=== PATIENT | male | born 1945 | race Asian ===

== ENCOUNTER 2016-12-09 17:29 | Inpatient (IN) | payer OTHER, MEDICAID ==
[2016-09-03 13:54] VITALS: Ht 162.6 cm; Wt 101.6 kg
[~2016-12-09] VITALS: Ht 162.6 cm; Wt 101.6 kg
[2016-12-09] VITALS (8 sets, daily range): BP systolic 112–137; BP diastolic 62–73; PULSE 51–74; RESP 16–26; TEMP 97.9–98.2; O2SAT 78–98
[~2016-12-09 17:29] MED LIST: ALBU8.5H8 INH; ASA81 PO; ASPI-1063; ATEN100T44 PO; BECL8.7A6 INH; COR6.25 PO; DOXA2TAB PO; FEBU80TA PO; FURO-150 PO; GLYB5TAB7 PO; LOSA100T11 PO; LOSA25TA3; LOSA25TA3 PO; MONT10TA22 PO; NOR10 PO; SIMV5TAB53 PO; SSREG SUBCUT; [UNRECOGNIZED DRUG - CODE]; [UNRECOGNIZED DRUG - CODE]
--- NOTE | 2016-12-09 17:40 | NUR ---
Pt placed to ER bed 03, on radiation monitor. Pt report given to Dr. Cavazos and DANAE Neal. RT called to bedside.
--- NOTE | 2016-12-09 17:58 | NUR ---
Pt placed in room 3, distended abd, SOB noted w/ acessory muscle use. Placed on balance weigher w/ SR noted, rates discomfort 6/10.
[2016-12-09] MEDS ORDERED: FUROSEMIDE 40 MG/4 ML VIAL IVP ONE ×2 (18:00→21:30)
[2016-12-09] MEDS ORDERED: methylPREDNISolone SOD SUCC/PF 62.5 MG/ML VIAL IVP ONE (18:00)
[2016-12-09] MEDS ORDERED: IPRATROPIUM/ALBUTEROL SULFATE 3 ML AMPUL.NEB INH ONE (18:00)
[2016-12-09 18:01] LABS: ABG TOTAL HEMOGLOBIN 15.2 G/dL (12.0-18.0); BLOOD GAS BASE EXCESS 6.3 mmol/L (-3.0-3.0); BLOOD GAS COHb% 1.8 % (0.5-1.5); BLOOD GAS HHB 25.8 % (0.0-6.0)
[2016-12-09 18:03] LABS: BASOPHILS % (AUTO) 0.1 % (0.0-2.0); EOSINOPHILS % (AUTO) 0.4 % (0.0-4.0); HEMATOCRIT 43.4 % (36-54); HEMOGLOBIN 13.9 g/dL (14.0-18.0); LYMPHOCYTES # (AUTO) 0.8 K/uL (1.0-5.5); LYMPHOCYTES % (AUTO) 7.5 % (20.5-51.5); MEAN CORPUSCULAR HEMOGLOBIN 26 pg (27-31); MEAN CORPUSCULAR HGB CONC 32 % (32-36); MEAN CORPUSCULAR VOLUME 82 fL (79.0-98.0); MONOCYTES # (AUTO) 0.3 K/uL (0.0-1.0); MONOCYTES % (AUTO) 2.8 % (1.7-9.3); NEUTROPHILS # (AUTO) 9.5 K/uL (1.8-7.7); NEUTROPHILS % (AUTO) 89.2 % (40.0-70.0); PLATELET COUNT (AUTO) 185 K/uL (130-430); RED BLOOD CELL COUNT(AUTO) 5.31 MIL/uL (4.2-6.2); RED CELL DISTRIBUTION WIDTH 13.5 % (9.0-15.0); WHITE BLOOD COUNT (AUTO) 10.6 K/uL (4.8-10.8)
--- NOTE | 2016-12-09 18:10 | NUR ---
X-ray in progress at bedside.
[2016-12-09 18:22] LABS: ANION GAP 6 (5-15); CHLORIDE 102 mmol/L (98-107); CREATININE 2.19 mg/dL (0.55-1.30); GLUCOSE 116 mg/dL (70-99); POTASSIUM 3.4 mmol/L (3.5-5.1); SODIUM SERUM 141 mmol/L (136-145); UREA NITROGEN, BLOOD 49 mg/dL (8-21)
[2016-12-09 18:26] LABS: INR 1.1 (0.80-1.20); PROTHROMBIN TIME 11.5 SECS (9.5-12.5)
[2016-12-09 18:41] LABS: ALANINE AMINOTRANSFERASE 27 U/L (12-78); ASPARTATE AMINOTRANSFERASE 24 U/L (10-37); TOTAL BILIRUBIN 1.7 mg/dL (0.0-1.0)
[2016-12-09 18:42] LABS: ALBUMIN 2.7 g/dL (3.4-4.8); TOTAL PROTEIN, SERUM 8.4 g/dL (6.4-8.3)
[2016-12-09] MEDS ORDERED: ETOMIDATE 20 MG/ 10 ML VIAL (AMIDATE) IVP ONE ×2 (19:29→20:00)
--- NOTE | 2016-12-09 19:32 | NUR ---
PT WAS INTUBATED BY DR JOSHUA WITH ET TUBE SIZE 8.0, AND LEVEL 23.
--- NOTE | 2016-12-09 19:33 | NUR ---
PT WAS PUT IN A MECHANICAL VENT WITH SETTINGS TIDAL VOLUME 600, RR 16, FIO2 100%.
--- NOTE | 2016-12-09 19:40 | NUR ---
# 16 FR Newton catheter with use of sterile technique. Immediate return of 200 cc DARK YELLOW urine noted. Bedside drainage bag placed below level of bladder. Urine sample collected and sent to lab. Pt tolerated procedure WELL.
--- NOTE | 2016-12-09 19:51 | NUR ---
DR HALL CALLED AND TALKED TO DR JOSHUA AND RECIEVED ORDERS.
[2016-12-09] MEDS ORDERED: ETOMIDATE 20 MG/ 10 ML VIAL (AMIDATE) ONE (19:57)
[2016-12-09] MEDS ORDERED: ROCURONIUM BROMIDE 10 MG/ML (ZEMURON) IV ONE (20:00)
[2016-12-09] MEDS ORDERED: IPRATROPIUM/ALBUTEROL SULFATE 3 ML AMPUL.NEB INH PRN (20:30)
--- NOTE | 2016-12-09 20:40 | NUR ---
Spoke with MD Salas informed of ABG, New vent settings to 50% FiO2. and addition orders are placed.
--- NOTE | 2016-12-09 21:00 | NUR ---
Patient will be admitted to care of DR LING . Admitted to ICU unit. Will go to room 4. Belongings list completed. Summary report printed. Report given to HILARIO FARRAR.
--- NOTE | 2016-12-09 21:10 | NUR ---
Admission Jennifer vicente, 71 years old, male, care of dr. edouard. Pt intubated in E.R. ETT lipline 23cm, size 8. AC 16, Fio2 50%, tidal volume 600. pt tolerating well, spo2 at 99% at the time. IV site on the right wrist 20g and left AC 20g noted, saline locked. safety precautions in place. Bed in the lowest positioned, locked. HOB semi Lund 30 degrees for aspiration precaution. daughter Dina at bedside. Plan of care discussed. verbalized understandings. call light within reach. will continue to monitor Flu vaccine: per daughter Dina flu vaccine was received in this hospital on August of last year during his admit.
[2016-12-09] MEDS ORDERED: DEXTROSE 50% JECT 50 ML DISP.SYRIN IVP PRN (21:15)
[2016-12-09 22:05] LABS: BLOOD GAS BASE EXCESS 5.2 mmol/L (-3.0-3.0); BLOOD GAS PH 7.462 (7.350-7.450)
[2016-12-09 22:06] LABS: ABG TOTAL HEMOGLOBIN 14.8 G/dL (12.0-18.0); BLOOD GAS COHb% 1.2 % (0.5-1.5); BLOOD GAS HHB 1.2 % (0.0-6.0); BLOOD O2Hb% 97.2 % (94.0-97.0)
[2016-12-09] MEDS: methylPREDNISolone SOD SUCC/PF 62.5 MG/ML VIAL IVP SCH (22:22)
[2016-12-09] MEDS ORDERED: cefTRIAXone 1 GM IVPB PREMIX 50 ML IV ONE (22:53)
[2016-12-09] MEDS ORDERED: AZITHROMYCIN 500 MG/VIAL (ZITHROMAX) IV ONE (22:54)
[2016-12-09] MEDS: IPRATROPIUM/ALBUTEROL SULFATE 3 ML AMPUL.NEB INH SCH (23:38)
[2016-12-10] VITALS (35 sets, daily range): BP systolic 99–135; BP diastolic 45–86; PULSE 59–77; RESP 16–18; TEMP 97.8–99; O2SAT 91–98
--- NOTE | 2016-12-10 | NUR ---
called dr. Salas regarding pt agited and distress. facial grimacing noted. New orders given for bilateral soft wrist restrains, ativan 2mg IVP q2h PRN, insert oral g-tube and Morphine 2mg IVP q4h for pain. verified order. carried out.
[2016-12-10] MEDS: cefTRIAXone 1 GM IVPB PREMIX 50 ML IV SCH ×2 (00:04→21:52)
[2016-12-10] MEDS: AZITHROMYCIN 500 MG in NS 250 ML IV SCH ×2 (00:05→21:52)
[2016-12-10] MEDS: LORazepam 2 MG/ML VIAL IVP PRN ×5 (00:23→19:43)
--- NOTE | 2016-12-10 04:00 | NUR ---
Pt eye open. appeared to be distress, facial grimacing noted. when asked pt if needed anti anxiety medication. pt nodded. administered. pt resting. comfortable. Will continue to monitor
[2016-12-10] MEDS: IPRATROPIUM/ALBUTEROL SULFATE 3 ML AMPUL.NEB INH SCH ×6 (04:05→23:32)
--- NOTE | 2016-12-10 05:30 | NUR ---
MD rounds Pt was seen by Dr. miller.
[2016-12-10] MEDS: methylPREDNISolone SOD SUCC/PF 62.5 MG/ML VIAL IVP SCH ×3 (06:39→21:52)
--- NOTE | 2016-12-10 06:56 | NUR ---
closing not hourly rounds done. comfort needs met thorough out the shift. Educated pt to use call light for assistance. call light within reach. will endorse to the shift supervisor film processing nurse to continue care.
--- NOTE | 2016-12-10 08:00 | NUR ---
Nursing Pt resting in bed. No SOB on ETT setting: AC 16, TV 600, fio2 50% Peep =0. No sign of pain nor discomfort. Asleep but arousable. Restraints in place. No sign of trauma d/t restraints. Afib on monitor. Will continue to monitor.
[2016-12-10] MEDS: PANTOPRAZOLE SODIUM 40 MG/VIAL (PROTONIX) IVP SCH (08:01)
[2016-12-10] MEDS: ASPIRIN 81 MG TAB.CHEW PO SCH (08:01)
[2016-12-10] MEDS: CARVEDILOL 6.25 MG TABLET (COREG) PO SCH ×3 (08:02→21:51)
[2016-12-10] MEDS: FUROSEMIDE 40 MG/4 ML VIAL IVP SCH ×2 (08:03→21:51)
[2016-12-10] MEDS: MONTELUKAST 10 MG TABLET PO SCH (08:05)
--- NOTE | 2016-12-10 08:29 | NUR ---
consult for dr. kaur called spoke to dinorah dialed [phone]
[2016-12-10 08:33] LABS: ABG TOTAL HEMOGLOBIN 14.5 G/dL (12.0-18.0); BLOOD GAS BASE EXCESS 5.7 mmol/L (-3.0-3.0); BLOOD GAS COHb% 1.1 % (0.5-1.5); BLOOD GAS PH 7.493 (7.350-7.450); BLOOD O2Hb% 92.6 % (94.0-97.0)
[2016-12-10 08:34] LABS: BLOOD GAS HHB 6.1 % (0.0-6.0)
--- NOTE | 2016-12-10 08:45 | NUR ---
Nutrition Update Ramses Scale 16 noted. Pt admitted for CHF. Diet: N/A BMI: 38.4 kg/m2 RD to follow per nutrition care standards.
--- NOTE | 2016-12-10 09:00 | NUR ---
Carvidelol Held Heart rate afib from 58-70. Charge nurse made aware. Will continue to monitor.
--- NOTE | 2016-12-10 09:41 | NUR ---
consult for dr. almanza called spoke to robson dialed [phone]
[2016-12-10 09:47] LABS: ANION GAP 9 (5-15); CALCIUM 8.9 mg/dL (8.4-11.0); CHLORIDE 106 mmol/L (98-107); CREATININE 2.34 mg/dL (0.55-1.30); GLUCOSE 136 mg/dL (70-99); POTASSIUM 3.3 mmol/L (3.5-5.1); SODIUM SERUM 146 mmol/L (136-145); UREA NITROGEN, BLOOD 54 mg/dL (8-21)
[2016-12-10 09:52] LABS: ALANINE AMINOTRANSFERASE 23 U/L (12-78); ALBUMIN 2.4 g/dL (3.4-4.8); ASPARTATE AMINOTRANSFERASE 24 U/L (10-37); HEMATOCRIT 45.3 % (36-54); HEMOGLOBIN 14.1 g/dL (14.0-18.0); LYMPHOCYTES # (AUTO) 0.6 K/uL (1.0-5.5); LYMPHOCYTES % (AUTO) 6.1 % (20.5-51.5); MEAN CORPUSCULAR HEMOGLOBIN 26 pg (27-31); MEAN CORPUSCULAR HGB CONC 31 % (32-36); MEAN CORPUSCULAR VOLUME 83 fL (79.0-98.0); MONOCYTES # (AUTO) 0.1 K/uL (0.0-1.0); MONOCYTES % (AUTO) 0.9 % (1.7-9.3); NEUTROPHILS # (AUTO) 9.6 K/uL (1.8-7.7); PLATELET COUNT (AUTO) 182 K/uL (130-430); RED BLOOD CELL COUNT(AUTO) 5.44 MIL/uL (4.2-6.2); TOTAL BILIRUBIN 1.3 mg/dL (0.0-1.0); TOTAL PROTEIN, SERUM 7.8 g/dL (6.4-8.3); WHITE BLOOD COUNT (AUTO) 10.3 K/uL (4.8-10.8)
--- NOTE | 2016-12-10 12:00 | NUR ---
No IV fluids/No GT feeding/ BNP =1740 Dr. Koch is here and made aware that pt's BNP yesterday was 1740, still awaiting current BNP. Also made MD aware that pt has no fluids nor GT feeding ordered. No new order at this time. Addendum: 12/10/16 at 1520 by Whitney Whitfield RN Dr. Connelly also made aware that pt's beta rodney was held this am d/t heart rate AfIb 58-70. Asked MD for parameter for the beta rodney. New order given to hold medication if HR less than 50.
[2016-12-10] MEDS: MORPHINE 2 MG/ML INJ. SYRINGE IVP PRN (13:57)
--- NOTE | 2016-12-10 14:00 | NUR ---
Nursing Pt is asleep, with episode of waking up and trying to pull out ETT. Daughter @ bedside. Pt was educated re: the need for restraints to keep him safe. Pt nodded and was cooperative with care. Able to help turn himself. Able to nod head to yes/no question. Suctioned via trach with blood tinged secretion. Urine to whitten with sediments. No new wounds observed. Will continue to monitor.
--- NOTE | 2016-12-10 17:03 | NUR ---
Nursing Pt is asleep and calm. However, when pt wakes up - he reaches to try to grab his ETT. When educated, pt calms back down and cooperative with care. Daughter at bedside, educated re: restraints and plan of care. Pt's secretion via ETT is pink. Pt able to report when he is in pain. Vital signs stable. Will continue to monitor.
--- NOTE | 2016-12-10 21:15 | NUR ---
Received report from DANAE Olson. Pt on vent via ETT on AC setting and tolerating well. Pt opens eyes when name is called and is calm and cooperative. Bilateral soft wrist restraints in place to prevent pt from pulling on tubing. Left AC PIV and right wrist PIV in place. F/C with securement device in place. NGT to left nares is clamped. Head of bed elevated. Will continue to monitor.
[2016-12-10] MEDS: SIMVASTATIN 10 MG TABLET PO SCH (21:51)
[2016-12-11] VITALS (34 sets, daily range): BP systolic 108–164; BP diastolic 56–105; PULSE 56–96; RESP 11–31; TEMP 97.3–98.8; O2SAT 90–97
--- NOTE | 2016-12-11 00:30 | NUR ---
Pt agitated. Medicated with Ativan. Bilateral soft wrist restraints in place. Afib on tele. Head of bed elevated. Will continue to monitor.
[2016-12-11] MEDS: IPRATROPIUM/ALBUTEROL SULFATE 3 ML AMPUL.NEB INH SCH ×6 (04:12→23:50)
--- NOTE | 2016-12-11 04:30 | NUR ---
Medicated with Ativan for agitation. Pt pulling at gown and trying to get out of bed by sliding his legs off of the bed. Repositioned pt and side rails up x 4. Will continue to monitor.
[2016-12-11] MEDS: methylPREDNISolone SOD SUCC/PF 62.5 MG/ML VIAL IVP SCH ×3 (05:49→21:14)
--- NOTE | 2016-12-11 06:55 | NUR ---
Pt self extubated. Will notify swimming pool salesperson. Placed on a simple mask. Will continue to monitor.
--- NOTE | 2016-12-11 06:55 | NUR ---
RT NOTES Pt. self-extubated, placed on 8L simple mask SPO2 92%. No respiratory distress noted, but see-saw breathing pattern noted. HHN tx given via aerosol mask w/ U.D duoneb w/c the pt. tolerated well. Marquise ABG while pt. is on HHN tx.
--- NOTE | 2016-12-11 07:15 | NUR ---
Endorsed care to DANAE Kay.
--- NOTE | 2016-12-11 07:40 | NUR ---
AM ASSESSMENT. PT ON A SIMPLE MASK THIS TIME, BREATHING DEEP, WHEEZES TO UPPER LOBES, ABDOMEN ROUNDED BUT SOFT ON PALPATION, RESTRAINTS IN PLACE, REMOVED AND REPLACED, PULSES STRONG, SALINE LOCKS IN RT WRIST AND LEFT A/C, MATHEWS CATHETER DRAINING YELLOW OUTPUT.
--- NOTE | 2016-12-11 07:45 | NUR ---
Spoke with Dr. Salas regarding ABG results. Orders given for BIPAP. Will continue to monitor.
--- NOTE | 2016-12-11 07:50 | NUR ---
RT NOTES Per ABG result, titrated pt. to 3L NC w/ CO2 detector. Pt. was educated on deep breathing and nodded head. @0503 Dr Ji noticed pt. not responding appropriately and ok to put pt. on Bipap.
--- NOTE | 2016-12-11 07:50 | NUR ---
OS. R.TAndrew SWITCHED O2 TO NASAL CANNULA WITH CO2 DETECTOR. Addendum: 12/11/16 at 0818 by Eliza Garcia RN O2 INSTEAD OF OS
--- NOTE | 2016-12-11 07:55 | NUR ---
O2 PT RESPONSIVE TO VERBAL COMMAND, OPENS HIS EYES, FACIAL BIPAP APPLIED BY R.TAndrew 16/ FIO2 30%, BACK UP RATE 12.
--- NOTE | 2016-12-11 07:55 | NUR ---
RT NOTES Placed pt. on Bipap 25/04 BUR 12 30% per Dr Salas's order. Pt. appears to tolerate settings well. Pt. was educated on BIPAP and importance of keeping it on. Pt. nodded. Will cont. to monitor pt.
--- NOTE | 2016-12-11 08:00 | NUR ---
LOC. PT FOLLOWS SIMPLE COMMANDS, TURNED AND REPOSITIONED IN BED, DISCONTINUED RESTRAINTS.
[2016-12-11] MEDS: CARVEDILOL 6.25 MG TABLET (COREG) PO SCH ×2 (09:00→21:15)
[2016-12-11] MEDS: ASPIRIN 81 MG TAB.CHEW PO SCH (09:00)
[2016-12-11] MEDS: MONTELUKAST 10 MG TABLET PO SCH (09:00)
[2016-12-11] MEDS: PANTOPRAZOLE SODIUM 40 MG/VIAL (PROTONIX) IVP SCH (09:39)
[2016-12-11] MEDS: FUROSEMIDE 40 MG/4 ML VIAL IVP SCH ×2 (09:40→21:13)
[2016-12-11 10:13] LABS: BLOOD GAS PH 7.375 (7.350-7.450)
[2016-12-11 10:14] LABS: ABG TOTAL HEMOGLOBIN 15.2 G/dL (12.0-18.0); BLOOD GAS BASE EXCESS 6.3 mmol/L (-3.0-3.0); BLOOD GAS COHb% 0.1 % (0.5-1.5); BLOOD GAS HHB 1.4 % (0.0-6.0); BLOOD O2Hb% 98.2 % (94.0-97.0)
--- NOTE | 2016-12-11 11:40 | NUR ---
NURSING. PT APPROACHED WITH EYES CLOSED, OPENS HIS EYES TO COMMAND, REPOSITIONED IN BED, DENIES BODY DISCOMFORTS.
--- NOTE | 2016-12-11 14:55 | NUR ---
CONSULT. DR MCCORMICK HERE AND EXAMINED PT.
--- NOTE | 2016-12-11 15:55 | NUR ---
LOC. PT ON A BIPAP, STATED "I'M HUNGRY", REPOSITIONED PT UPRIGHT IN BED, R.T. ON DUTY STEPPED INTO ROOM, BIPAP REMOVED, PT ALERT, ABLE TO ANSWER SIMPLE QUESTIONS.
--- NOTE | 2016-12-11 16:05 | NUR ---
RT NOTES Took pt. off the BIpap for some ice chip and placed on 3L NC, no immediate adverse reactions noted. Will monitor pt. RN at bedside.
--- NOTE | 2016-12-11 16:10 | NUR ---
LOC. BP CUFF TEMPORARILY REMOVED, ALL EXTREMITIES MOVING ACTIVELY.
--- NOTE | 2016-12-11 16:25 | NUR ---
RT NOTES Pt. continue to tolerate 3L NC, SPO2 93-95% R.R. 25 H.R. 87. Pt. is alert and states that breathing is ok, no difficulties. Pt. was reeducated on deep-breathing, as well as to use call button if feeling short of breath.
--- NOTE | 2016-12-11 16:35 | NUR ---
RT NOTES Pt is starting to dose off, SPO2 decreased to 86-88%, placed pt. back on Bipap with the same settings, put Optifoam on pt around mask.
--- NOTE | 2016-12-11 17:10 | NUR ---
FAMILY. PT'S DAUGHTER AND HIS AT BEDSIDE, UPDATE ON HIS CONDITION PROVIDED.
--- NOTE | 2016-12-11 18:45 | NUR ---
LOC. PT BREATHING PATTERN MUCH BETTER NOW, CALM, O2 SAT 96% WHILE ON FACIAL BIPAP.
--- NOTE | 2016-12-11 20:00 | NUR ---
PM SHIFT ASSESSMENT, PT AWAKE, CONFUSED AND DISORIENTED.REORIENTED HIM TO ROOM AND SURROUNDINGS.ON BIPAP16/6. FIO2 30%.PT SLIGHTLY SOB.LUNGS VERY CONGESTED AND WHEEZY.RT AT BEDSIDE TO GIVE TREATMENT.ATRIAL FIB ON THE MONITOR.
--- NOTE | 2016-12-11 20:30 | NUR ---
HERE, ORDERED TO PLACE PT ON O2 VIA OXYMIZER @3L, AND BIPAP @ NIGHT AND PRN. RT NOTIFIED
[2016-12-11] MEDS: cefTRIAXone 1 GM IVPB PREMIX 50 ML IV SCH (21:14)
[2016-12-11] MEDS: SIMVASTATIN 10 MG TABLET PO SCH (21:15)
--- NOTE | 2016-12-11 22:00 | NUR ---
PER PT CAN HAVE CLEAR LIQUID DIET. TOOK PO FLUIDS WELL WITH PO MEDS.
[2016-12-11] MEDS: AZITHROMYCIN 500 MG in NS 250 ML IV SCH (22:06)
--- NOTE | 2016-12-11 22:10 | NUR ---
RT PLACED PT ON BIPAP PER ORDER.
--- NOTE | 2016-12-11 22:30 | NUR ---
RESUMED CARE: Received patient awake, alert and oriented x 3. Patient on a Bipap 16/6, 30%, 12. Breathing even and unlabored. Atrial fib on the monitor. Afebrile. IV access on the left AC and right wrist both 20G, patent and intact and on saline lock. Abdomen distended. Newton cath draining yellow urine. Bilateral SCDs in place. Edema and dryness noted all over his body. HOB elevated at 30 degrees with 2 side rails up and bed in lowest level. Bed brakes locked. Denies any pain or discomfort. All needs met. Placed call light within reach. Will continue to monitor.
--- NOTE | 2016-12-11 22:30 | NUR ---
REPORT GIVEN TO JEN. Summers SHE TOOK OVER PT CARE.
[2016-12-11 22:54] LABS: ABG TOTAL HEMOGLOBIN 15.2 G/dL (12.0-18.0); BLOOD GAS BASE EXCESS 5.7 mmol/L (-3.0-3.0); BLOOD GAS COHb% 0.9 % (0.5-1.5); BLOOD GAS PH 7.435 (7.350-7.450)
[2016-12-11 22:55] LABS: BLOOD GAS HHB 6.6 % (0.0-6.0)
[2016-12-12] VITALS (35 sets, daily range): BP systolic 109–156; BP diastolic 50–115; PULSE 65–116; RESP 13–42; TEMP 97.3–98.7; O2SAT 90–99
--- NOTE | 2016-12-12 00:05 | NUR ---
PT UPDATE: Patient noted to be a little restless and taking off his Bipap. No acute distress or SOB noted at this time. Reminded and explained to patient not to take it off. Patient agreed to leave Bipap on him. Will continue to monitor.
[2016-12-12] MEDS: LORazepam 2 MG/ML VIAL IVP PRN ×7 (01:43→23:45)
--- NOTE | 2016-12-12 02:22 | NUR ---
PT UPDATE: Patient in no acute distress not SOB at this time. Patient was changed on oxymizer and patient is tolerating it well. Patient sleeping comfortably. Will continue to monitor.
[2016-12-12] MEDS: IPRATROPIUM/ALBUTEROL SULFATE 3 ML AMPUL.NEB INH SCH ×6 (03:40→23:50)
--- NOTE | 2016-12-12 04:33 | NUR ---
CHG: CHG bath given to patient, all linens changed. Patient tolerated procedure well. No acute distress or SOB noted. Will continue to monitor.
--- NOTE | 2016-12-12 05:18 | NUR ---
Buckle Coverer at bedside for AM lab draw.
[2016-12-12] MEDS: methylPREDNISolone SOD SUCC/PF 62.5 MG/ML VIAL IVP SCH ×3 (05:27→21:28)
[2016-12-12 06:28] LABS: EOSINOPHILS % (AUTO) 0.1 % (0.0-4.0); HEMATOCRIT 46.4 % (36-54); HEMOGLOBIN 14.3 g/dL (14.0-18.0); LYMPHOCYTES # (AUTO) 0.3 K/uL (1.0-5.5); LYMPHOCYTES % (AUTO) 2.5 % (20.5-51.5); MEAN CORPUSCULAR HEMOGLOBIN 26 pg (27-31); MEAN CORPUSCULAR HGB CONC 31 % (32-36); MEAN CORPUSCULAR VOLUME 85 fL (79.0-98.0); MONOCYTES # (AUTO) 0.2 K/uL (0.0-1.0); MONOCYTES % (AUTO) 1.3 % (1.7-9.3); NEUTROPHILS # (AUTO) 12.8 K/uL (1.8-7.7); PLATELET COUNT (AUTO) 233 K/uL (130-430); RED BLOOD CELL COUNT(AUTO) 5.47 MIL/uL (4.2-6.2); RED CELL DISTRIBUTION WIDTH 13.8 % (9.0-15.0); WHITE BLOOD COUNT (AUTO) 13.3 K/uL (4.8-10.8)
[2016-12-12 06:43] LABS: ANION GAP 5 (5-15); CALCIUM 8.6 mg/dL (8.4-11.0); CHLORIDE 110 mmol/L (98-107); CREATININE 2.11 mg/dL (0.55-1.30); GLUCOSE 138 mg/dL (70-99); PHOSPHORUS 5.7 mg/dL (2.7-4.5); POTASSIUM 3.4 mmol/L (3.5-5.1); SODIUM SERUM 152 mmol/L (136-145); UREA NITROGEN, BLOOD 50 mg/dL (8-21)
--- NOTE | 2016-12-12 06:48 | NUR ---
IV RE-INSERTION: Patient pulled out IV access on his left ac. Restarted on right ac G20 with good venous return and put on saline lock. Successful after 2 attempts. Will observe for any signs of infiltration.
--- NOTE | 2016-12-12 07:10 | NUR ---
RT NOTES Took pt off of BIPAP and placed on 3L NC per Dr Salas's outstanding order. No immediate adverse reactions noted. Will monitor pt, will draw ABG while pt. is on NC.
--- NOTE | 2016-12-12 07:20 | NUR ---
REPORT: Report given to DANAE Yuan.
--- NOTE | 2016-12-12 07:50 | NUR ---
RT NOTES Placed pt. back on BIPAP after ABG draw, due to abnormal breathing (see-saw motion). Alarms set and audible.
--- NOTE | 2016-12-12 08:00 | NUR ---
Pt noted removing his Bipap and waving his hands in the air.
[2016-12-12 08:15] LABS: BLOOD GAS PH 7.354 (7.350-7.450)
[2016-12-12 08:16] LABS: ABG TOTAL HEMOGLOBIN 15.8 G/dL (12.0-18.0); BLOOD GAS BASE EXCESS 3.8 mmol/L (-3.0-3.0); BLOOD GAS COHb% 1.3 % (0.5-1.5); BLOOD GAS HHB 5.2 % (0.0-6.0); BLOOD O2Hb% 93.3 % (94.0-97.0)
[2016-12-12] MEDS: ASPIRIN 81 MG TAB.CHEW PO SCH (08:40)
[2016-12-12] MEDS: CARVEDILOL 6.25 MG TABLET (COREG) PO SCH ×2 (08:40→21:00)
[2016-12-12] MEDS: FUROSEMIDE 40 MG/4 ML VIAL IVP SCH ×2 (08:41→21:28)
[2016-12-12] MEDS: PANTOPRAZOLE SODIUM 40 MG/VIAL (PROTONIX) IVP SCH (08:41)
[2016-12-12] MEDS: MONTELUKAST 10 MG TABLET PO SCH (08:41)
--- NOTE | 2016-12-12 10:08 | NUR ---
Pt resting in bed. Bipap in place. Vital Signs stable. Will continue to monitor patient.
--- NOTE | 2016-12-12 10:17 | NUR ---
PRIEST Og arrived at bedside. & family praying at bedside. Addendum: 12/12/16 at 1929 by Kwabena Tolliver RN Charted on wrong patient
--- NOTE | 2016-12-12 11:56 | NUR ---
Called Dr. Haider with a consult(Renal Failure) Spoke with Sergey from the exchange
[2016-12-12 12:09] LABS: NEUTROPHILS % (AUTO) 96.1 % (40.0-70.0)
[2016-12-12] MEDS: MORPHINE 2 MG/ML INJ. SYRINGE IVP PRN ×2 (12:27→17:56)
[2016-12-12] MEDS: INSULIN REGULAR, HUMAN 100 UNITS/ML, 10 ML VIAL (novoLIN R) SUBCUT PRN (13:28)
[2016-12-12] MEDS ORDERED: D5W 1,000 ML IV SCH (14:48)
--- NOTE | 2016-12-12 15:10 | NUR ---
Renal US at bedside
[2016-12-12 15:39] LABS: BLOOD GAS PH 7.385 (7.350-7.450)
[2016-12-12 15:40] LABS: ABG TOTAL HEMOGLOBIN 15.9 G/dL (12.0-18.0); BLOOD GAS BASE EXCESS 5.8 mmol/L (-3.0-3.0); BLOOD GAS COHb% 0.7 % (0.5-1.5); BLOOD GAS HHB 3.4 % (0.0-6.0); BLOOD O2Hb% 95.6 % (94.0-97.0)
[2016-12-12] MEDS: NICOTINE 7 MG/24 HR PATCH.TD24 TD SCH (16:45)
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
--- NOTE | 2016-12-12 19:00 | NUR ---
SBAR given to My T. All care endorsed to on coming RN.
[2016-12-12] MEDS ORDERED: POTASSIUM CHLORIDE 20 MEQ TAB.PRT.SR PO ONE (19:30)
--- NOTE | 2016-12-12 20:00 | NUR ---
PM ASSESSMENT PT IN BED, RESTLESS. PT ON BIPAP 16/6 FIO2 30% BUR 12. O2 SAT 95%. BREATHING EVEN AND UNLABORED. 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 PERIPHERAL IV 20G TO RIGHT WRIST AND PERIPHERAL IV 20 G TO RIGHT AC NOTED DRESSING CLEAN DRY AND INTACT. NO SIGNS OF INFECTION OR INFILTRATION. D5W RUNNING @ 50 ML/HR. PT HAS BILATERAL SOFT WRIST RESTRAINTS. GOOD SKIN AND CIRCULATION CHECKED IN BILATERAL UPPER EXTREMITIES. MATHEWS CATHETER IN PLACE. PT HAS SCD ON. FAMILY AT BEDSIDE. CALL LIGHT WITHIN REACH. BED AT LOWEST POSITION. CONTINUE TO MONITOR
[2016-12-12] MEDS: SIMVASTATIN 10 MG TABLET PO SCH (21:00)
[2016-12-12] MEDS: cefTRIAXone 1 GM IVPB PREMIX 50 ML IV SCH (21:29)
[2016-12-12] MEDS: AZITHROMYCIN 500 MG in NS 250 ML IV SCH (21:30)
[2016-12-12] MEDS: HALOPERIDOL LACTATE 5 MG/ML VIAL IVP PRN (22:16)
[2016-12-12] MEDS ORDERED: POTASSIUM CHLORIDE 20 MEQ in NS 250 ML IV ONE (22:30)
[2016-12-12] MEDS ORDERED: KCL 20 mEq in 100 mL (PREMIX) 100 ML IV ONE (22:39)
[2016-12-13] VITALS (34 sets, daily range): BP systolic 128–194; BP diastolic 65–116; PULSE 71–114; RESP 12–33; TEMP 98.4–99.2; O2SAT 89–100
[2016-12-13] MEDS: INSULIN REGULAR, HUMAN 100 UNITS/ML, 10 ML VIAL (novoLIN R) SUBCUT PRN ×3 (00:21→23:43)
[2016-12-13] MEDS: MORPHINE 2 MG/ML INJ. SYRINGE IVP PRN ×3 (02:26→20:30)
[2016-12-13] MEDS: LORazepam 2 MG/ML VIAL IVP PRN ×5 (02:41→22:59)
[2016-12-13] MEDS: IPRATROPIUM/ALBUTEROL SULFATE 3 ML AMPUL.NEB INH SCH ×5 (03:00→20:43)
--- NOTE | 2016-12-13 05:00 | NUR ---
HYGIENE Gave pt CHG bath. Linen changed. Oral care done. Perineal care and skin care done.
[2016-12-13] MEDS: methylPREDNISolone SOD SUCC/PF 62.5 MG/ML VIAL IVP SCH ×3 (05:43→22:26)
[2016-12-13] MEDS: HALOPERIDOL LACTATE 5 MG/ML VIAL IVP PRN ×4 (05:43→23:29)
[2016-12-13 06:29] LABS: BASOPHILS % (AUTO) 0.1 % (0.0-2.0); EOSINOPHILS # (AUTO) 0.1 K/uL (0.0-0.4); EOSINOPHILS % (AUTO) 0.7 % (0.0-4.0); HEMATOCRIT 46.5 % (36-54); HEMOGLOBIN 14.5 g/dL (14.0-18.0); LYMPHOCYTES # (AUTO) 0.5 K/uL (1.0-5.5); LYMPHOCYTES % (AUTO) 3.7 % (20.5-51.5); MEAN CORPUSCULAR HEMOGLOBIN 27 pg (27-31); MEAN CORPUSCULAR HGB CONC 31 % (32-36); MEAN CORPUSCULAR VOLUME 86 fL (79.0-98.0); MONOCYTES # (AUTO) 0.2 K/uL (0.0-1.0); MONOCYTES % (AUTO) 1.8 % (1.7-9.3); NEUTROPHILS # (AUTO) 12.4 K/uL (1.8-7.7); NEUTROPHILS % (AUTO) 93.7 % (40.0-70.0); PLATELET COUNT (AUTO) 258 K/uL (130-430); RED BLOOD CELL COUNT(AUTO) 5.43 MIL/uL (4.2-6.2); WHITE BLOOD COUNT (AUTO) 13.2 K/uL (4.8-10.8)
[2016-12-13 06:44] LABS: ALANINE AMINOTRANSFERASE 29 U/L (12-78); ALBUMIN 2.4 g/dL (3.4-4.8); ANION GAP 4 (5-15); ASPARTATE AMINOTRANSFERASE 27 U/L (10-37); CALCIUM 8.7 mg/dL (8.4-11.0); CHLORIDE 112 mmol/L (98-107); CREATININE 1.96 mg/dL (0.55-1.30); GLUCOSE 150 mg/dL (70-99); PHOSPHORUS 3.9 mg/dL (2.7-4.5); POTASSIUM 3.9 mmol/L (3.5-5.1); SODIUM SERUM 153 mmol/L (136-145); TOTAL BILIRUBIN 0.8 mg/dL (0.0-1.0); TOTAL PROTEIN, SERUM 7.5 g/dL (6.4-8.3); UREA NITROGEN, BLOOD 48 mg/dL (8-21)
--- NOTE | 2016-12-13 07:19 | NUR ---
Vent Setting Dr Castillo called. Notified about ABG results. Dr Castillo ordered Vent setting AC 12 Fio2 35% Tv 500 Addendum: 12/13/16 at 0839 by Saba Johnson RN Type in error
--- NOTE | 2016-12-13 07:30 | NUR ---
AM ROUNDS RECEIVED PT UP IN BED. AWAKE, ALERT. BREATHING IS EVEN AND UNLABORED ON BIBPAP- 16/6, BUR 12, FiO2 30%. ABDOMEN DISTENDED, BUT SOFT. BOWEL SOUNDS HYPOACTIVE. F/C DRAINING CLEAR ENMA URINE TO GRAVITY. SCD'S TO BLE. B/L WRIST RESTRAINTS IN PLACE. PT IS RESTESS AND AGITATED TRYING TO PULL AT RESTRAINTS. ATIVAN ADMIN ORDERED. FULL ASSESSMENT COMPLETED, VSS.
[2016-12-13 08:18] LABS: ABG TOTAL HEMOGLOBIN 16.3 G/dL (12.0-18.0); BLOOD GAS BASE EXCESS 8.2 mmol/L (-3.0-3.0); BLOOD GAS COHb% 1.4 % (0.5-1.5); BLOOD GAS HHB 5.5 % (0.0-6.0); BLOOD GAS PH 7.435 (7.350-7.450); BLOOD O2Hb% 92.7 % (94.0-97.0)
--- NOTE | 2016-12-13 08:30 | NUR ---
RN ROUNDS ADMIN AM MEDS ORDERED. PT RACHEL WELL. ASSISTED PT WITH CLEAR LIQUID DIET. PT ATE 100%, AND 2 CUPS OF WATER. REPOSITIONED PT. SUPPORTED WITH PILLOWS.
[2016-12-13] MEDS: NICOTINE 7 MG/24 HR PATCH.TD24 TD SCH (09:00)
[2016-12-13] MEDS: PANTOPRAZOLE SODIUM 40 MG/VIAL (PROTONIX) IVP SCH (09:31)
[2016-12-13] MEDS: MONTELUKAST 10 MG TABLET PO SCH (09:31)
[2016-12-13] MEDS: FUROSEMIDE 40 MG/4 ML VIAL IVP SCH ×2 (09:31→20:16)
[2016-12-13] MEDS: ASPIRIN 81 MG TAB.CHEW PO SCH (09:31)
[2016-12-13] MEDS: CARVEDILOL 6.25 MG TABLET (COREG) PO SCH ×2 (09:32→20:11)
--- NOTE | 2016-12-13 10:09 | NUR ---
RT NOTE PATIENT TAKEN OFF BIPAP AND PLACED ON 3LPM OF O2 VIA OXYMIZER, RN INFORMED, NO RESP DISTRESS NTD
--- NOTE | 2016-12-13 10:37 | NUR ---
DISCHARGE PLANNING DC Planning order for LTAC evaluation. Faxed DC Planning order to [facility] office [phone].
--- NOTE | 2016-12-13 11:10 | NUR ---
PATIENT PLACED BACK ON BIPAP AT THIS TIME DUE TO LABORED BREATHING WITH ACCESSORY MUSCLE USAGE ON BOTH INSPIRATORY AND EXPIRATORY PHASE. RR 30 AND SAT OF 88% ON 10LPM OF XYMIZER.
--- NOTE | 2016-12-13 11:45 | NUR ---
RESP DISTRESS PT WITH LABORED BREATHING. OXIMIZER ON 4 L/MIN. CALLED RT. INCREASED TO 12L. O2 SAT= 88%. RT BIZMARK PLACED PT BACK ON BIPAP. O2 SAT IS 99%.
--- NOTE | 2016-12-13 13:02 | NUR ---
Social Service Note: INCIDENT RESPONSE ENGINEER received a call from pt's dtr requesting a letter for work; INCIDENT RESPONSE ENGINEER has left note at nurses station for pt's daughter.
--- NOTE | 2016-12-13 14:35 | NUR ---
CT ROLLER PICKER HERE TO COMPOSITION MOLDER PT FOR CT SCAN. PT IS COMBATIVE AND UNCOOPERATIVE. ADMIN ATIVAN ORDERED. WAITED X 15MIN. PT CONT TO KICK, SQUIRM, AND YELL. ROLLER PICKER IS UNABLE TO PERFORM DIAGNOSTIC AT THIS TIME. PT WILL NEED TO REMAIN STILL X 10 MIN FOR TEST. WILL ATTEMP AGAIN WHEN PT IS CALM.
--- NOTE | 2016-12-13 16:00 | NUR ---
FRANCISCO MCCORMICK FOR B/P 175/. CALL BACK PENDING.
--- NOTE | 2016-12-13 16:25 | NUR ---
PAGED 2ND PAGE TO DR MCCORMICK FOR B/P 171/118. CALL BACK PENDING.
--- NOTE | 2016-12-13 16:55 | NUR ---
PAGED 3RD PAGE TO DR MCCORMICK FOR B/P 175/84. CALL BACK PENDING.
--- NOTE | 2016-12-13 17:15 | NUR ---
FRANCISCO SAUNDERS PAGEEric LING FOR UNCONTROLLED B/P. NEW ORDER FOR VASOTEC. ORDER NOTED AND CARRIED OUT.
[2016-12-13] MEDS ORDERED: ENALAPRILAT DIHYDRATE 1.25 MG/ML VIAL IVP PRN (17:30)
[2016-12-13] MEDS ORDERED: ENALAPRILAT DIHYDRATE 1.25 MG/ML VIAL ONE (17:38)
--- NOTE | 2016-12-13 18:30 | NUR ---
FRANCISCO MCCORMICK FOR B/P 172/114 AFTER VASOTEC ADMIN. CALL BACK PENDING.
--- NOTE | 2016-12-13 18:45 | NUR ---
CALLED RECEIVED CALL FROM DR MCCORMICK. NEW ORDER FOR HYDRALAZINE 10MG. ORDER NOTED AND CARRIED OUT
[2016-12-13] MEDS ORDERED: hydrALAZINE HCL 20 MG/ML VIAL ONE (18:50)
--- NOTE | 2016-12-13 19:25 | NUR ---
CLOSING NOTE PT RESTING IN BED. ALL NEEDS MET. REPORT ENDORSED TO MY RN.
--- NOTE | 2016-12-13 19:30 | NUR ---
PM ASSESSMENT PT IN BED, RESTLESS. PT ON OXYMIZER 6 L O2 SAT 99%. BREATHING EVEN AND UNLABORED. 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 PERIPHERAL IV 20G TO RIGHT WRIST SL AND PERIPHERAL IV 20 G SL TO RIGHT AC NOTED DRESSING CLEAN DRY AND INTACT. NO SIGNS OF INFECTION OR INFILTRATION. PT HAS BILATERAL SOFT WRIST RESTRAINTS. GOOD SKIN AND CIRCULATION CHECKED IN BILATERAL UPPER EXTREMITIES. MATHEWS CATHETER IN PLACE. PT HAS SCD ON. CALL LIGHT WITHIN REACH. BED AT LOWEST POSITION. CONTINUE TO MONITOR
--- NOTE | 2016-12-13 19:38 | NUR ---
B/P B/P IS 166/91. ENDORSED TO HARRIET RN, MY.
--- NOTE | 2016-12-13 20:10 | NUR ---
MD RAVINDRA HALL @ PT'S BEDSIDE
[2016-12-13] MEDS: SIMVASTATIN 10 MG TABLET PO SCH (20:16)
[2016-12-13] MEDS: AZITHROMYCIN 500 MG in NS 250 ML IV SCH (22:26)
[2016-12-13] MEDS: cefTRIAXone 1 GM IVPB PREMIX 50 ML IV SCH (22:26)
[2016-12-14] VITALS (33 sets, daily range): BP systolic 138–185; BP diastolic 60–116; PULSE 82–111; RESP 14–43; TEMP 97.2–99.1; O2SAT 89–100
[2016-12-14] MEDS: IPRATROPIUM/ALBUTEROL SULFATE 3 ML AMPUL.NEB INH SCH ×6 (03:47→23:34)
[2016-12-14] MEDS: HALOPERIDOL LACTATE 5 MG/ML VIAL IVP PRN ×3 (04:06→15:12)
[2016-12-14] MEDS: MORPHINE 2 MG/ML INJ. SYRINGE IVP PRN (04:55)
[2016-12-14] MEDS: methylPREDNISolone SOD SUCC/PF 62.5 MG/ML VIAL IVP SCH ×3 (05:12→21:07)
[2016-12-14] MEDS: hydrALAZINE HCL 20 MG/ML VIAL IVP PRN ×2 (05:24→14:10)
[2016-12-14 06:13] LABS: BASOPHILS % (AUTO) 0.1 % (0.0-2.0); HEMOGLOBIN 15.6 g/dL (14.0-18.0); LYMPHOCYTES # (AUTO) 0.5 K/uL (1.0-5.5); LYMPHOCYTES % (AUTO) 3.7 % (20.5-51.5); MEAN CORPUSCULAR HEMOGLOBIN 26 pg (27-31); MEAN CORPUSCULAR HGB CONC 31 % (32-36); MEAN CORPUSCULAR VOLUME 84 fL (79.0-98.0); MONOCYTES # (AUTO) 0.4 K/uL (0.0-1.0); MONOCYTES % (AUTO) 3.1 % (1.7-9.3); NEUTROPHILS # (AUTO) 12.2 K/uL (1.8-7.7); NEUTROPHILS % (AUTO) 93.1 % (40.0-70.0); PLATELET COUNT (AUTO) 221 K/uL (130-430); RED BLOOD CELL COUNT(AUTO) 6.06 MIL/uL (4.2-6.2); RED CELL DISTRIBUTION WIDTH 14.2 % (9.0-15.0); WHITE BLOOD COUNT (AUTO) 13.1 K/uL (4.8-10.8)
[2016-12-14 07:04] LABS: ALANINE AMINOTRANSFERASE 41 U/L (12-78); ALBUMIN 2.7 g/dL (3.4-4.8); ANION GAP 7 (5-15); ASPARTATE AMINOTRANSFERASE 36 U/L (10-37); CALCIUM 8.8 mg/dL (8.4-11.0); CHLORIDE 110 mmol/L (98-107); GLUCOSE 112 mg/dL (70-99); POTASSIUM 3.2 mmol/L (3.5-5.1); SODIUM SERUM 152 mmol/L (136-145); TOTAL BILIRUBIN 0.9 mg/dL (0.0-1.0); UREA NITROGEN, BLOOD 44 mg/dL (8-21)
--- NOTE | 2016-12-14 07:43 | NUR ---
GIVE REPORT TO ONCOMING NURSE
--- NOTE | 2016-12-14 08:00 | NUR ---
INITIAL SHIFT ASSESSMENT DONE (SEE ASSESSMENT PART). DROWSY BUT EASILY AROUSABLE. ORIENTED X1. NO C/O PAIN OR DYSPNEA. ON BIPAP, TOLERATING WELL. O2 SAT 99%. A-FIB ON MONITOR. SBP IN 140'S-160'S. HOB ELEVATED. UPDATED OF PLAN OF CARE. WILL CONTINUE TO MONITOR.
[2016-12-14] MEDS ORDERED: POTASSIUM CHLORIDE 40 MEQ in NS 250 ML IV SCH (08:12)
[2016-12-14 08:43] LABS: BLOOD GAS PH 7.472 (7.350-7.450)
[2016-12-14 08:44] LABS: ABG TOTAL HEMOGLOBIN 17.5 G/dL (12.0-18.0); BLOOD GAS COHb% 1.2 % (0.5-1.5); BLOOD GAS HHB 3.7 % (0.0-6.0); BLOOD O2Hb% 94.6 % (94.0-97.0)
--- NOTE | 2016-12-14 08:50 | NUR ---
GIVEN BREAKFAST TRAY. DRINKS THE JUICE AND WATER ONLY.
[2016-12-14] MEDS: NICOTINE 7 MG/24 HR PATCH.TD24 TD SCH (09:00)
[2016-12-14] MEDS: PANTOPRAZOLE SODIUM 40 MG/VIAL (PROTONIX) IVP SCH (09:05)
[2016-12-14] MEDS: CARVEDILOL 6.25 MG TABLET (COREG) PO SCH ×2 (09:05→21:05)
[2016-12-14] MEDS: FUROSEMIDE 40 MG/4 ML VIAL IVP SCH ×2 (09:05→21:04)
[2016-12-14] MEDS: ASPIRIN 81 MG TAB.CHEW PO SCH (09:05)
[2016-12-14] MEDS: MONTELUKAST 10 MG TABLET PO SCH (09:05)
--- NOTE | 2016-12-14 09:48 | NUR ---
BECOMES RESTLESS AT THIS TIME, KEEPS ON SHOUTING. GIVEN HALDOL IVP. WILL CONTINUE TO MONITOR.
--- NOTE | 2016-12-14 10:00 | NUR ---
RESTING IN BED. STILL HAVING PERIODS OF AGITATION AND RESTLESSNESS. NO C/O PAIN OR DYSPNEA. O2 SAT 88-93%. A-FIB ON MONITOR. SBP IN 160'S-170'S. WILL GIVE MEDICATION FOR HIGH BP. HOB ELEVATED. WILL CONTINUE TO MONITOR.
--- NOTE | 2016-12-14 10:13 | NUR ---
SBP IN 160'S-170'S. GIVEN VASOTEC IVP. WILL CONTINUE TO MONITOR.
--- NOTE | 2016-12-14 10:46 | NUR ---
PT OFF BIPAP 0845, PLACED ON 4L OXYMIZER. SAT.93% Addendum: 12/14/16 at 1048 by Ashley Tran RT Amended: Links added.
--- NOTE | 2016-12-14 11:00 | NUR ---
O2 SAT 88-91%. RR IN 30'S-40'S. RT PUT PATIENT BACK TO BIPAP AT THIS TIME. WILL CONTINUE TO MONITOR.
--- NOTE | 2016-12-14 12:00 | NUR ---
REASSESSMENT DONE. NEURO STATUS UNCHANGED. NO C/O PAIN OR DYSPNEA. TOLERATING BIPAP WELL. O2 SAT 98-99%. A-FIB ON MONITOR. SBP IN 160'S-170'S. HOB ELEVATED. GIVEN LUNCH TRAY BUT PATIENT REFUSED TO EAT AT THIS TIME. UPDATED OF PLAN OF CARE. WILL CONTINUE TO MONITOR.
[2016-12-14] MEDS: INSULIN REGULAR, HUMAN 100 UNITS/ML, 10 ML VIAL (novoLIN R) SUBCUT PRN ×2 (12:25→18:24)
--- NOTE | 2016-12-14 13:00 | NUR ---
AND DAUGHTER ARE IN THE ROOM. UPDATED OF STATUS AND PLAN OF CARE.
--- NOTE | 2016-12-14 14:00 | NUR ---
RESTING IN BED. NO C/O PAIN OR DYSPNEA. STILL HAVING OCCASIONAL AGITATION. TOLERATING BIPAP WELL. O2 SAT 97-100%. A-FIB ON MONITOR. SBP IN 170'S. WILL GIVE MEDICATION FOR HIGH SBP. HOB ELEVATED. WILL CONTINUE TO MONITOR.
--- NOTE | 2016-12-14 14:10 | NUR ---
GIVEN HYDRALAZINE 10 MG IVP AT THIS TIME FOR HIGH BP. WILL CONTINUE TO MONITOR.
--- NOTE | 2016-12-14 14:42 | NUR ---
Discharge Planning Received a call from Kina Floyd [phone], who stated that she would evaluate patient today for possible acceptance @ [facility]. I informed Kina that there will not be a CM in the office tomorrow so I instructed her to call directly to the unit tomorrow if patient is accepted and there is a bed available.
--- NOTE | 2016-12-14 15:12 | NUR ---
BECOMES RESTLESS AT THIS TIME, KEEPS ON SHOUTING FOR NO REASON. AND DAUGHTER AT BEDSIDE HELPING THE PATIENT TO CALM DOWN BUT STILL KEEP ON SHOUTING. GIVEN HALDOL IVP. WILL CONTINUE TO MONITOR.
--- NOTE | 2016-12-14 16:30 | NUR ---
DR SARABIA IN THE ROOM. UPDATED OF STATUS. MD TALK TO THE AND DAUGHTER OF THE PATIENT. NEW ORDER RECEIVE.
[2016-12-14] MEDS ORDERED: D5W 1,000 ML IV SCH (16:45)
--- NOTE | 2016-12-14 18:00 | NUR ---
DR HALL IN THE ROOM. MD TALK TO THE AND DAUGHTER OF THE PATIENT. MD UPDATED OF STATUS. NEW ORDERS RECEIVE.
--- NOTE | 2016-12-14 18:40 | NUR ---
DR MCCORMICK IN THE ROOM. UPDATED OF STATUS. MD TALK TO THE AND DAUGHTER. NEW ORDERS RECEIVE.
--- NOTE | 2016-12-14 18:50 | NUR ---
GIVEN CHG BATH AND LINENS ARE CHANGE. TOLERATED THE PROCEDURE WELL.
--- NOTE | 2016-12-14 19:15 | NUR ---
REPORT GIVEN TO INCOMING ETHANOL QUALITY LEADER RN, DANAE TEJADA.
[2016-12-14] MEDS: hydrALAZINE HCL 20 MG/ML VIAL IVP SCH ×2 (19:30→23:12)
--- NOTE | 2016-12-14 20:00 | NUR ---
LETHARGIC. MOANS. BOUTS OF RESTLESSNESS. FAMILY AT BEDSIDE. ON BIPAP 16/, FIO2 30%, BUR 12. POX 99%. AFIB. ARPAN SOFT WRIST RESTRAINTS AND MITTENS ON FOR SAFETY. ATTEMPTS TO PULL/TAG ON EQUIPMENT. MATHEWS CATH PATENT DRAINING OLIGURIC RED-TINGED URINE TO GRAVITY. DR MCCORMICK HERE EARLIER, NEW ORDERS GIVEN AND IMPLEMENTED.
--- NOTE | 2016-12-14 21:00 | NUR ---
FAMILY LEFT FOR HOME. ATIVAN 2 MG IVP GIVEN FOR RESTLESSNESS, MOANING, AGITATION AND THRASHING. ABLE TO SWALLOW H2O AND PILLS WITHOUT INCIDENCE. APPLE JUICE GIVEN.
[2016-12-14] MEDS: SIMVASTATIN 10 MG TABLET PO SCH (21:05)
[2016-12-14] MEDS: cefTRIAXone 1 GM IVPB PREMIX 50 ML IV SCH (21:06)
[2016-12-14] MEDS: LORazepam 2 MG/ML VIAL IVP PRN (21:07)
--- NOTE | 2016-12-14 22:00 | NUR ---
OCC MOIST NON-PRODUCTIVE COUGH, SUCTIONED BUCCAL CAVITY VIA YANKAUER. REPOSITIONED. HS CARE. CIRCULATION CHECK DONE.
[2016-12-15] VITALS (34 sets, daily range): BP systolic 97–162; BP diastolic 45–90; PULSE 68–107; RESP 14–36; TEMP 97.6–98.8; O2SAT 92–100
--- NOTE | 2016-12-15 | NUR ---
DOZES ON AND OFF. MOANS AT TIMES. ACCU-CHEK 199, 2 UNITS REG INSULIN SQ GIVEN PER SLIDING SCALE COV. STILL OLIGURIC. TO BE MONITORED CLOSELY.
[2016-12-15] MEDS: INSULIN REGULAR, HUMAN 100 UNITS/ML, 10 ML VIAL (novoLIN R) SUBCUT PRN ×3 (00:13→17:39)
[2016-12-15] MEDS: LORazepam 2 MG/ML VIAL IVP PRN ×2 (00:54→22:55)
--- NOTE | 2016-12-15 01:00 | NUR ---
ATIVAN 2 MG IVP GIVEN FOR AGITATION.
--- NOTE | 2016-12-15 01:40 | NUR ---
DR SARABIA NOTIFIED OF STATUS AND LOW UO, NEW ORDERS RECEIVED AND IMPLEMENTED. IVF DECREASED FROM D5W AT 100CC/HR TO 50CC/HR. MATHEWS CATH IRRIGATED, BALLOON DEFLATED AND REINSERTED, URINE FLOW BETTER. AM CARE. MATHEWS CARE, FANTA-CARE, BACK CARE, SKIN CARE GIVEN. PARTIAL LINEN CHANGE DONE. DOES NOT ASSIST WITH TURNING. RACHEL PROC WELL.
[2016-12-15] MEDS ORDERED: D5W 1,000 ML IV SCH (01:44)
[2016-12-15] MEDS: D5W 1,000 ML IV SCH ×2 (02:32→22:03)
[2016-12-15] MEDS: hydrALAZINE HCL 20 MG/ML VIAL IVP SCH ×6 (03:00→23:01)
--- NOTE | 2016-12-15 03:00 | NUR ---
APRESOLINE 10 MG HELD FOR BP 100/57.
[2016-12-15] MEDS: IPRATROPIUM/ALBUTEROL SULFATE 3 ML AMPUL.NEB INH SCH ×6 (03:39→23:24)
--- NOTE | 2016-12-15 06:00 | NUR ---
SLEPT WELL THR REST OF THE SHIFT. NO DISTRESS NOTED. UO GOOD. PULSES PALPABLE. VSS. ACCU-CHEK 170, 2 UNITS REG INSULIN SQ GIVEN PER SLIDING SCALE COVERAGE. REMAINS IN GUARDED CONDITION.
[2016-12-15] MEDS: methylPREDNISolone SOD SUCC/PF 62.5 MG/ML VIAL IVP SCH ×3 (06:13→22:04)
[2016-12-15 06:51] LABS: ALANINE AMINOTRANSFERASE 53 U/L (12-78); ALBUMIN 2.3 g/dL (3.4-4.8); ANION GAP 6 (5-15); ASPARTATE AMINOTRANSFERASE 40 U/L (10-37); CALCIUM 8.5 mg/dL (8.4-11.0); CHLORIDE 109 mmol/L (98-107); CREATININE 2.42 mg/dL (0.55-1.30); GLUCOSE 178 mg/dL (70-99); POTASSIUM 3.1 mmol/L (3.5-5.1); SODIUM SERUM 150 mmol/L (136-145); TOTAL PROTEIN, SERUM 6.6 g/dL (6.4-8.3); UREA NITROGEN, BLOOD 56 mg/dL (8-21)
[2016-12-15] MEDS: NICOTINE 7 MG/24 HR PATCH.TD24 TD SCH (08:17)
[2016-12-15 08:26] LABS: ABG TOTAL HEMOGLOBIN 16.8 G/dL (12.0-18.0); BLOOD GAS BASE EXCESS 8.1 mmol/L (-3.0-3.0); BLOOD GAS COHb% 1.1 % (0.5-1.5); BLOOD GAS HHB 4.3 % (0.0-6.0); BLOOD GAS PH 7.465 (7.350-7.450); BLOOD O2Hb% 94.3 % (94.0-97.0)
--- NOTE | 2016-12-15 09:18 | NUR ---
Potassium Dr Ji informed of patient's low potassium. Orders received. Will continue to monitor
[2016-12-15] MEDS ORDERED: POTASSIUM CHLORIDE 40 MEQ in NS 250 ML IV SCH (09:30)
[2016-12-15] MEDS: PANTOPRAZOLE SODIUM 40 MG/VIAL (PROTONIX) IVP SCH (09:39)
[2016-12-15] MEDS: FUROSEMIDE 40 MG/4 ML VIAL IVP SCH (09:40)
--- NOTE | 2016-12-15 11:12 | NUR ---
Josue SAUNDERS called for patient update. No orders received. Will continue to monitor patient
--- NOTE | 2016-12-15 11:21 | NUR ---
NICK Phone report to Kina at [facility].
--- NOTE | 2016-12-15 12:59 | NUR ---
FAMILY Patient's nephew at bedside. Pt in bed. no distress noted. Pt is having ALOC, not obeying commands not verbally responding.
--- NOTE | 2016-12-15 13:05 | NUR ---
Margy SAUNDERS at bedside to assess patient.
[2016-12-15] MEDS: CARVEDILOL 6.25 MG TABLET (COREG) PO SCH ×2 (13:51→22:02)
[2016-12-15] MEDS: MONTELUKAST 10 MG TABLET PO SCH (13:52)
[2016-12-15] MEDS: ASPIRIN 81 MG TAB.CHEW PO SCH (13:52)
--- NOTE | 2016-12-15 13:57 | NUR ---
1556 PT OFF BIPAP FOR EATING SAT 99%. Addendum: 12/15/16 at 1359 by Ashley Tran RT Amended: Links added.
[2016-12-15 14:43] LABS: POTASSIUM 3.8 mmol/L (3.5-5.1)
--- NOTE | 2016-12-15 19:24 | NUR ---
SBAR given to oncoming RN. All care endorsed.
[2016-12-15] MEDS: HALOPERIDOL LACTATE 5 MG/ML VIAL IVP PRN (19:53)
--- NOTE | 2016-12-15 20:00 | NUR ---
Received pt awake and non verbal at this time. Pt follows commands. Currently on Bipap and tolerating well. Afib on telemetry. IVF via right AC PIV. Right wrist PIV is saline locked. F/C in place and secured. Bilateral soft wrist restraints in place. Head of bead elevated. Will continue to monitor.
[2016-12-15] MEDS: MORPHINE 2 MG/ML INJ. SYRINGE IVP PRN (20:53)
[2016-12-15] MEDS: SIMVASTATIN 10 MG TABLET PO SCH (22:02)
[2016-12-15] MEDS: cefTRIAXone 1 GM IVPB PREMIX 50 ML IV SCH (22:04)
[2016-12-16] VITALS (17 sets, daily range): BP systolic 88–147; BP diastolic 49–104; PULSE 80–99; RESP 11–22; TEMP 98.2–98.9; O2SAT 94–100
--- NOTE | 2016-12-16 | NUR ---
Haldol given for agitation. Provided oral and eye care to patient. Pt was able to tolerate jello and breeze drink. Will continue to monitor.
[2016-12-16] MEDS: HALOPERIDOL LACTATE 5 MG/ML VIAL IVP PRN ×3 (00:16→09:02)
[2016-12-16] MEDS: LORazepam 2 MG/ML VIAL IVP PRN (01:30)
[2016-12-16] MEDS: hydrALAZINE HCL 20 MG/ML VIAL IVP SCH ×4 (02:46→14:49)
[2016-12-16] MEDS: MORPHINE 2 MG/ML INJ. SYRINGE IVP PRN (02:47)
[2016-12-16] MEDS: IPRATROPIUM/ALBUTEROL SULFATE 3 ML AMPUL.NEB INH SCH ×4 (04:00→17:06)
--- NOTE | 2016-12-16 04:00 | NUR ---
Pt agitated and yelling incomprehensible words. Pt remains on bipap and at 0700, will start weaning trail with venti mask. Pt repositioned. Will continue to monitor.
[2016-12-16] MEDS: methylPREDNISolone SOD SUCC/PF 62.5 MG/ML VIAL IVP SCH ×2 (06:21→14:48)
[2016-12-16] MEDS: INSULIN REGULAR, HUMAN 100 UNITS/ML, 10 ML VIAL (novoLIN R) SUBCUT PRN ×2 (06:27→11:32)
[2016-12-16 07:08] LABS: HEMATOCRIT 51.2 % (36-54); HEMOGLOBIN 16.4 g/dL (14.0-18.0); MEAN CORPUSCULAR HEMOGLOBIN 27 pg (27-31); MEAN CORPUSCULAR HGB CONC 32 % (32-36); MEAN CORPUSCULAR VOLUME 84 fL (79.0-98.0); PLATELET COUNT (AUTO) 245 K/uL (130-430); RED CELL DISTRIBUTION WIDTH 14.4 % (9.0-15.0)
[2016-12-16 07:20] LABS: WHITE BLOOD COUNT (AUTO) 16.5 K/uL (4.8-10.8)
[2016-12-16 07:21] LABS: ALANINE AMINOTRANSFERASE 72 U/L (12-78); ALBUMIN 2.6 g/dL (3.4-4.8); ANION GAP 8 (5-15); ASPARTATE AMINOTRANSFERASE 45 U/L (10-37); CALCIUM 8.8 mg/dL (8.4-11.0); CHLORIDE 109 mmol/L (98-107); CREATININE 2.16 mg/dL (0.55-1.30); GLUCOSE 195 mg/dL (70-99); POTASSIUM 3.5 mmol/L (3.5-5.1); SODIUM SERUM 151 mmol/L (136-145); TOTAL PROTEIN, SERUM 7.2 g/dL (6.4-8.3); UREA NITROGEN, BLOOD 57 mg/dL (8-21)
--- NOTE | 2016-12-16 08:00 | NUR ---
BREAKFAST Pt yelling for water. pt was feed. Pt ate 50% of his breakfast. Pt declined eating more. Pt yelled "no more" repeatedly. Pt's HOB was elevated as per protocol. Will continue to monitor.
[2016-12-16] MEDS: PANTOPRAZOLE SODIUM 40 MG/VIAL (PROTONIX) IVP SCH (08:15)
[2016-12-16] MEDS: CARVEDILOL 6.25 MG TABLET (COREG) PO SCH (08:16)
[2016-12-16] MEDS: NICOTINE 7 MG/24 HR PATCH.TD24 TD SCH (08:17)
[2016-12-16] MEDS: MONTELUKAST 10 MG TABLET PO SCH (08:17)
[2016-12-16] MEDS: ASPIRIN 81 MG TAB.CHEW PO SCH (08:17)
[2016-12-16 08:18] LABS: ABG TOTAL HEMOGLOBIN 17.1 G/dL (12.0-18.0); BLOOD GAS BASE EXCESS 6.8 mmol/L (-3.0-3.0); BLOOD GAS COHb% 0.8 % (0.5-1.5); BLOOD GAS HHB 3.3 % (0.0-6.0); BLOOD GAS PH 7.435 (7.350-7.450); BLOOD O2Hb% 95.6 % (94.0-97.0)
[2016-12-16] MEDS ORDERED: FUROSEMIDE 40 MG/4 ML VIAL IVP SCH (09:00)
--- NOTE | 2016-12-16 09:02 | NUR ---
Pt yelling. Pt kicking bed and removing clothes. Pt's speech is garbled and incomprehensible. Pt's was feed. Pt was cleaned and dried. Pt was repositioned in bed. Pt shakes his head no he is not in pain. Pt continues to yell, kick, squirm. Dr Ji aware, will continue to monitor patients behavior.
[2016-12-16 09:21] LABS: ATYPICAL LYMPHOCYTES % 0 % (0-0); BAND % (MANUAL) 0 % (0-6); BASOPHILS % (MANUAL) 0 % (0-2); EOSINOPHILS % (MANUAL) 0 % (0-7); LYMPHOCYTES % (MANUAL) 4 % (20-46); MONOCYTES % (MANUAL) 2 % (0-11)
--- NOTE | 2016-12-16 11:50 | NUR ---
MST Pt was transported to med-surg tele with O2 and Tele monitor. SBAR Report was given to Lawrence Victor, all care was endorsed to RN.
--- NOTE | 2016-12-16 11:55 | NUR ---
TRANSFERED FROM ICU RECEIVED PT FROM ICU. [id number] 96% ON 12 L VENTI MASK FIO2 40%. HR, 98 HR RES 20. RES EVEN AND UNLABORED. NO IN ACUTE RES DISTRESS. PT CONTINUE ON BILATERAL WRIST RESTRAINTS. SKIN INTACT. MATHEWS CATH DRAINING YELLOW COLOR URINE TO GRAVITY. IV FLUIDS INFUSING WELL. CALL LIGHT WITHIN REACH. WILL CONTINUE TO MONITOR
--- NOTE | 2016-12-16 12:16 | NUR ---
DISCHARGE PLANNING Spoke with [facility] patient assigned to room 212A RN to report , bed available after 2pm today. DANAE Phelps made aware. PAVEL Oropeza updated patient family. Called [facility] ambulance spoke with Thea who stated has no nursing staff available. Called [facility] spoke with Nisreen who is unable to arrange transport till after 8pm. Called [facility] ambulance arranged ALS (Continuous BiPap/Drop Forge Operator) transport pickling operator 4pm. Ordered Radiology CD. Placed CD and transportation packet in nurses station. Addendum: 12/16/16 at 1341 by Gianna Lloyd DP Called [facility] ambulance spoke with Sera changed transport pickling operator 5pm.
--- NOTE | 2016-12-16 12:19 | NUR ---
DC PLANNING Discussed dc planning w Dr Ji earlier this am, states pt ok for Tele loc @ [facility]. Later in am Per tawanda Katz inventory planner, [facility] accepted & have bed avail for pt. Called & spoke w dtr Eliza Arroyo, ph [phone], states someone discussed [facility] w & family on Friday. Informed Eliza Arroyo that [facility] accepted pt & have bed available today. States that she & family are agreeable w transfer to [facility] today. Informed there are other LT[facility]'s also, states want [facility]. Informed pt will go to room 212A today around 4pm. Gianna, informed pt's nurse Mattie.
--- NOTE | 2016-12-16 13:30 | NUR ---
rounds pt stable not in acute distress.no s/s of pain or distress noted
--- NOTE | 2016-12-16 14:52 | NUR ---
rounds pt resting comfortably.continue on vent mask 12lpm fio2 40% o2 sat 95%. no s/s of res distress noted. repositioned with pillow . at bed side.will chapin nue to monitor
--- NOTE | 2016-12-16 16:00 | NUR ---
rounds pt stable not in acute distress. resting comfortably continue on venti mask same setting tolerating well. no s/s of res distress noted.ivf infusing well.family at bed side. repositioned with pillow. will continue tomonitor
[2016-12-16] MEDS ORDERED: ETOMIDATE 20 MG/ 10 ML VIAL (AMIDATE) IVP ONE (18:19)
[2016-12-16] MEDS ORDERED: ROCURONIUM BROMIDE 10 MG/ML (ZEMURON) IV ONE (18:19)
--- NOTE | 2016-12-16 18:20 | NUR ---
PT TRANSFERRED Report given to mateo FINK at [facility]. Transfer packet with Transfer Orders and Medication Reconciliation form given to EMT rn lock amr with report. Exitcare provided. [facility] ID band removed, replaced with ID band with pt's name and . pt sent with iv on r ac #20 sl no s/s of infitration noted.flushed well. whitten cath intact draining yellow color urine. Al. Patient left floor via gurney escorted by [facility] in no distress.
== END 2016-12-16 18:20 | DRG 208 ==
LOC: SED 17:29 → SIC 19:47 → STU 12-16 11:55
PROVIDERS: ADMIT Internal Medicine Hospice and Palliative Medicine; ATTEND Internal Medicine Hospice and Palliative Medicine
PROC: 5A1945Z Respiratory Ventilation, 24-96 Consecutive Hours (ICD-10-PCS; principal; 2016-12-09)
PROC: 0BH17EZ Insertion of Endotracheal Airway into Trachea, Via Natural or Artificial Opening (ICD-10-PCS; 2016-12-09)
PROC: 5A09557 Assistance with Respiratory Ventilation, Greater than 96 Consecutive Hours, Continuous Positive Airway Pressure (ICD-10-PCS; 2016-12-09)
DX: J69.0 Pneumonitis due to inhalation of food and vomit (principal); J96.01 Acute respiratory failure with hypoxia; N17.0 Acute kidney failure with tubular necrosis; I50.33 Acute on chronic diastolic (congestive) heart failure; G93.41 Metabolic encephalopathy; E87.0 Hyperosmolality and hypernatremia; I13.0 Hypertensive heart and chronic kidney disease with heart failure and stage 1 through stage 4 chronic kidney disease, or unspecified chronic kidney disease; J44.0 Chronic obstructive pulmonary disease with (acute) lower respiratory infection; J44.1 Chronic obstructive pulmonary disease with (acute) exacerbation; N18.4 Chronic kidney disease, stage 4 (severe); E11.65 Type 2 diabetes mellitus with hyperglycemia; E78.00 Pure hypercholesterolemia, unspecified; G47.33 Obstructive sleep apnea (adult) (pediatric); E66.9 Obesity, unspecified; J45.909 Unspecified asthma, uncomplicated; E11.22 Type 2 diabetes mellitus with diabetic chronic kidney disease; E78.5 Hyperlipidemia, unspecified; I48.2 Chronic atrial fibrillation; Z79.899 Other long term (current) drug therapy; Z87.891 Personal history of nicotine dependence; Z68.38 Body mass index [BMI] 38.0-38.9, adult; Z90.49 Acquired absence of other specified parts of digestive tract
CPT/HCPCS: 36415; 36600; 71010; 76770; 80048; 80053; 82803-TC; 82962; 83735-TC; 83880; 84100-TC; 84132-TC; 84484; 85007; 85025; 85027; 85610-TC; 85730-TC; 87070-TC; 87081; 87205-TC; 93005; 94002; 94003; 94640; 94660; 96374; 96375; 99291; A6209; C9113; J0360; J0456; J0696; J1630; J1815; J1940; J2060; J2270; J2930; J3480; J3490; J7050; J7060